=== PATIENT | female | born 2000 | race Caucasian/White ===

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

== ENCOUNTER → 2021-09-12 16:11 | Outpatient (CLI) | payer OTHER, MEDICAID, SELFPAY ==
[2021-09-12 16:56] LABS: Alanine Aminotransferase 32 IU/L (<35)
[2021-09-13 04:40] LABS: Hepatitis B Core AB w/Reflex Negative (Negative)
[2021-09-13 17:30] LABS: Hepatitis B Surface Antigen NEGATIVE s/c (NEGATIVE)
[2021-09-13 17:38] LABS: HIV 1 & 2 Ab/Ag 4th Gen Combo NEGATIVE (NEGATIVE); Hep C Virus Ab w/Reflex Quant NEGATIVE s/c (NEGATIVE)
== END ==
PROVIDERS: PCP Internal Medicine; Referring Provider Physician Assistant; Visit Provider Physician Assistant
DX: Z77.21 Contact with and (suspected) exposure to potentially hazardous body fluids; W46.1XXA Contact with contaminated hypodermic needle, initial encounter
CPT/HCPCS: 36415; 84460; 86704; 86803; 87340; 87389

== ENCOUNTER → 2021-12-13 10:58 | Outpatient (CLI) | payer OTHER, MEDICAID, SELFPAY ==
[2021-12-13 11:58] LABS: Influenza A - CEPHEID Flu A NEGATIVE (NEGATIVE); Influenza B - CEPHEID Flu B NEGATIVE (NEGATIVE)
[2021-12-13 11:59] LABS: COVID-19 CEPHEID PCR (VTM/NP) Negative (Negative)
== END ==
PROVIDERS: PCP Internal Medicine; Visit Provider Physician Assistant
DX: R05.9 Cough, unspecified (principal); Z20.822 Contact with and (suspected) exposure to COVID-19
CPT/HCPCS: 0240U

== ENCOUNTER → 2022-04-15 08:12 | Outpatient (CLI) | payer OTHER, MEDICAID, SELFPAY ==
--- NOTE | 2022-04-15 | DI.US.S_ITS ---
PROCEDURE: US RENAL COMPLETE INDICATIONS: PAIN; HISTORY KIDNEY STONES TECHNIQUE: Real-time scanning was performed of the kidneys and bladder, with image documentation. COMPARISON: [facility], , RENAL COMPLETE, 11/11/2017, 15:53. [facility], [place], RENAL COMPLETE, 10/19/2017, 23:21. FINDINGS: Kidneys: Kidneys are normal in size. Right kidney measures 11.8 cm long; left kidney measures 11.4 cm long. Right renal cortical thickness is 1.5 cm; left renal cortical thickness is 1.5 cm. Renal cortical echotexture is normal. No hydronephrosis . 2 nonobstructing calculi are visualized measuring 1.1 and 1.0 cm in diameter. There is a simple 1.4 cm left pararenal cyst. No suspicious solid mass lesions. Bladder: Pre-void bladder volume is 336 mL. Post-void residual is 0 mL. Pre-void images demonstrate no intraluminal masses or stones. On pre-void images, bilateral ureteral jets are noted with color Doppler interrogation. (Of note, ureteral jets may not be detectable in up to 25% of cases due to insufficient differences in specific gravity between ureteral and bladder urine). Miscellaneous: No free pelvic fluid. IMPRESSION: 1. Nonobstructive left nephrolithiasis. 2. No hydronephrosis or postvoid residual. Dictated by: Lisa Hartman M.D. on 04/15/2022 at 9:34 Approved by: Lisa Hartman M.D. on 04/15/2022 at 9:36
== END ==
PROVIDERS: PCP Internal Medicine; Referring Provider Internal Medicine; Visit Provider Internal Medicine
DX: R10.9 Unspecified abdominal pain (principal); N20.0 Calculus of kidney
CPT/HCPCS: 76770

== ENCOUNTER → 2023-02-03 12:14 | Outpatient (CLI) | payer OTHER, MEDICAID, SELFPAY ==
--- NOTE | 2023-02-03 | DI.CT.S_ITS ---
PROCEDURE: CT ABDOMEN PELVIS WO CON INDICATIONS: Calculus of kidney TECHNIQUE: Axial sections were acquired from the lung bases to the pubic symphysis. Coronal and sagittal reformats were performed. For radiation dose reduction, the following was used: automated exposure control, adjustment of mA and/or kV according to patient size. COMPARISON: [facility], CT, KIDNEY/ URETER/BLADDER, 11/14/2016, 22:05. [facility], US, US RENAL COMPLETE, 04/15/2022, 8:25. [facility], CT, ABDOMEN/PELVIS WITH CONTRAST, 10/20/2017, 1:40. [facility], CT, CT KIDNEY URETER BLADDER (KUB), 03/15/2020, 11:00. FINDINGS: Image quality: Excellent. Lung bases: Unremarkable. Heart: No significant findings. URINARY: Right Kidney: Question a 1 mm stone in the superior pole. No stones or hydronephrosis. Right Ureter: No stones or hydroureter. Left Kidney: There is a staghorn stone in the superior pole of the left kidney measuring approximately and 19 mm, demonstrating CT density 330 HU. No hydronephrosis. Left Ureter: No stones or hydroureter. Bladder: Normal wall thickness. No stones. ABDOMEN: Liver: Mild hepatomegaly and hepatic steatosis. Gallbladder: Unremarkable. Biliary ducts: Unremarkable. Pancreas: Unremarkable. Spleen: Unremarkable. Adrenal Glands: Unremarkable. Stomach and Bowel: Stomach, small bowel loops, and colon are unremarkable. Peritoneum: No abnormal intraperitoneal fluid. No free air. Ventral Wall: No hernia. Abdominal Nodes: No enlarged retroperitoneal or mesenteric lymph nodes. Vessels: Aorta and inferior vena cava are normal in size. PELVIS: Pelvic Organs: There is an IUD in uterus. Right ovary is grossly normal. Left ovary is not visualized. Pelvic Nodes: Unremarkable. Miscellaneous: No inguinal hernias are seen. Bones: Unremarkable. IMPRESSION: 1. Nephrolithiasis with a large staghorn stone in the superior pole of the left kidney, and the possible 1 mm stone in right kidney. No hydronephrosis. 2. Mild hepatomegaly and hepatic steatosis. Dictated by: Kathi Kelly M.D. on 02/03/2023 at 16:57 Approved by: Kathi Kelly M.D. on 02/03/2023 at 18:36
== END ==
PROVIDERS: PCP Internal Medicine; Referring Provider Internal Medicine; Visit Provider Internal Medicine
DX: N20.0 Calculus of kidney (principal); K76.89 Other specified diseases of liver; R16.0 Hepatomegaly, not elsewhere classified
CPT/HCPCS: 74176

== ENCOUNTER 2024-07-08 01:04 | Emergency (ER) | payer OTHER, SELFPAY ==
[2024-07-08 01:13] VITALS: BP 138/74; PULSE 96; RESP 17; TEMP 37; O2SAT 98; BMI 49.9
--- NOTE | 2024-07-08 01:54 | ED.PSYCH ---
HPI - Psych General Chief Complaint: Psychiatric Symptoms Stated Complaint: MENTAL HEALTH ISSUES Time Seen by Provider: 07/08/24 01:14 Source: patient Mode of arrival: other History of Present Illness HPI Narrative: 23yoF presents for mental health evaluation. Has been under significant stressors at home and has been having interpersonal difficulties with fiance. Patient states her fiance forced her to come for evaluation. She states that she gets upset and sometimes acts irrationally, however now she has had time to calm down. She states that she does not want to harm herself or , but sometimes she has problems regulating her emotions. She has failed numerous anti-depressants and is waiting until her PCP gets off of maternity leave before discussing any additional antidepressants to use. Related Data Home Medications Medication Instructions Recorded Confirmed phentermine 37.5 mg tablet 37.5 mg PO DAILY 07/08/24 07/08/24 topiramate 50 mg tablet 50 mg PO BEDTIME 07/08/24 07/08/24 Previous Rx's Medication Instructions Recorded cetirizine 10 mg capsule (Zyrtec) 10 mg PO DAILY #30 caps 01/05/18 albuterol sulfate 90 mcg/actuation 2 puff inhalation Q4-6H PRN 12/13/21 aerosol inhaler shortness of breath or wheezing #8.5 grams Allergies Allergy/AdvReac Type Severity Reaction Status Date / Time Sulfa (Sulfonamide Allergy Mild Verified 09/12/21 16:01 Antibiotics) [SULFA (SULFONAMIDE ANTIBIOTICS)] Penicillins [PENICILLINS] Allergy Unknown Verified 09/12/21 16:01 Patient History Medical History Allergic rhinitis (10/14/17) Disturbance in sleep behavior (07/16/17) Depression (04/21/17) Anxiety (01/07/17) Psychosocial stressors (03/11/16) Mild acne (11/09/13) Kidney stone on left side Kidney stone UTI (urinary tract infection) Hematuria Social History Smoking Status: Never smoker Smoking Status: Never smoker alcohol intake frequency: holidays/special occasions only Exam Initial Vital Signs Initial Vital Signs: Vital Signs Temperature 98.6 F 07/08/24 01:13 Pulse Rate 96 H 12/05/24 01:13 Respiratory Rate 17 07/08/24 01:13 Blood Pressure 138/74 07/08/24 01:13 Pulse Oximetry 98 07/08/24 01:13 Oxygen Delivery Method Room Air 07/08/24 01:13 Const: Awake, alert, tearful, no acute distress Cardiac: regular rate, regular rhythm RESP: unlabored, clear bilaterally, no wheezing Skin: Warm, Dry, intact, no rashes Neuro: AO x3, CN II-XII grossly intact, moves all extremities Psych: tearful, sad affect, congruent mood. Denying SI/HI Course Vital Signs Vital signs: Vital Signs - 8 hr 07/08/24 01:13 07/08/24 02:01 Temperature 98.6 F Pulse Rate 96 H 80 Respiratory Rate 17 16 Blood Pressure 138/74 126/74 Pulse Oximetry 98 98 Oxygen Delivery Method Room Air Room Air MDM - Psych MDM Narrative Medical decision making narrative: Patient coming in for mental health evaluation. She states that her fiance made her come in for evaluation. She states that she made a rash gesture any time of high emotion, and now that she has had time to calm down she feels much better. She adamantly denies wanting to harm herself, denies wanting to . She states she feels safe at home. Patient does not want to restart any previous psych medications. [employer] consulted for MH resources when patient leaves. Discharge Plan Departure Patient Disposition: Home Clinical Impression: Mental health-related complaint Instructions: DI for Suicidal Ideation-Adult Activity Restrictions/Additional Instructions: Follow up with your primary care doctor to see if any different medications can be started. If you have a decline in your mental health or feels suicidal or like harming herself down 911, come to the emergency department, or dial the [phone] mental health crisis sign Prescriptions: No Action albuterol sulfate 90 mcg/actuation HFA aerosol inhaler 2 puff inhalation Q4-6H PRN (Reason: shortness of breath or wheezing) Qty: 8.5 2RF cetirizine [Zyrtec] 10 mg capsule 10 mg PO DAILY Qty: 30 3RF phentermine 37.5 mg tablet 37.5 mg PO DAILY Rx Instructions: Take 1/2 a tablet daily topiramate 50 mg Tablet 50 mg PO BEDTIME Referrals: Britney Laboy ARNP [Primary Care Provider] - Stand Alone Forms: Patient Portal/API/Survey
[2024-07-08 02:01] VITALS: BP 126/74; PULSE 80; RESP 16; O2SAT 98
== END 2024-07-08 02:02 | disposition home or self-care (01) ==
PROVIDERS: Emergency Provider Emergency Medicine; PCP Internal Medicine
DX: R45.1 Restlessness and agitation (principal)
CPT/HCPCS: 99281